=== PATIENT | male | born 1990 | race Caucasian/White ===

== ENCOUNTER 2020-06-27 22:18 | Emergency (ER) | payer MEDICAID, SELFPAY ==
[~2020-06-27] VITALS: Ht 177.8 cm; Wt 68.0 kg
[2020-06-27 22:19] VITALS: Ht 177.8 cm; Wt 68.0 kg
[2020-06-27 23:07] VITALS: BP 128/74
== END 2020-06-27 23:07 | disposition home or self-care (01) ==
LOC: ED 22:18
DX: R06.02 Shortness of breath (principal); R53.83 Other fatigue; F15.10 Other stimulant abuse, uncomplicated; R51.9 Headache, unspecified